=== PATIENT | female | born 1990 | race Caucasian/White ===

== ENCOUNTER 2025-05-19 23:24 | Emergency (ER) | payer OTHER, SELFPAY ==
[2025-05-19 23:28] VITALS: BP 130/63; PULSE 76; RESP 18; TEMP 36.6; O2SAT 97; BMI 33.3
--- NOTE | 2025-05-19 23:37 | ED.GENADULT ---
HPI - General Adult General Chief complaint: Headache Stated complaint: Gen Med Time Seen by Provider: 05/19/25 23:37 History of Present Illness ED Provider: Saleem WILSON narrative: The patient is a 34-year-old woman who says that she has a history of fibromyalgia and migraine headaches. She used to live in [facility]. She relocated to this part of [place] a 2 months ago. She has not yet established any local providers. She says that she had regular providers [place] [facility] including a pain specialist. She says that she has not made the [address] to see her doctors since moving to this area. She says that she has not been prescribed her regular medications because her doctors do not want to prescribe for her unless they have seen her. She says that she has been trying to ?get by and some leftover gabapentin. ? she comes to the emergency room today saying that she has had a migraine headache for the last 2 days and has had worsening fibromyalgia pain for several additional days. No fever, sweats, chills. Related Data Allergies Allergy/AdvReac Type Severity Reaction Status Date / Time metoclopramide (From Reglan) Allergy Irritable Verified 05/19/25 23:31 prochlorperazine (From Allergy Irritable Verified 05/19/25 23:31 Compazine) Review of Systems Review of Systems: Yes all other systems are reviewed and are negative [facility] Social History Social History Advance Directives: No Advance Directives Information Provided: Yes Physical Exam ED Vital Signs: Vital Signs - 24 hr 05/19/25 23:28 05/20/25 01:05 Temperature 97.9 F 97.9 F Pulse Rate 76 76 Respiratory Rate 18 18 Blood Pressure 130/63 130/63 Pulse Oximetry 97 97 Oxygen Delivery Method Room Air Room Air BMI result Body Mass Index 33.3 Const Other: The patient is awake and alert. She said that she was in a lot of discomfort. She did not appear obviously ill or toxic. Her mental status was completely clear. Orientation/consciousness: patient oriented x3 HENMT Other: The face is symmetrical. ?Mucous membranes moist. Eyes Other: Pupils are round equal, conjunctivae are clear, extraocular movements intact Neck Other: No cervical adenopathy, she was moving her neck easily. Neck: Yes no meningeal signs Resp Effort & Inspection: normal respiratory effort Auscultation: clear to auscultation bilaterally Cardio Rate: regular rate Rhythm: regular rhythm Heart sounds: S1 normal heart sound present and S2 normal heart sound present Skin Other: The skin is dry and unremarkable General skin exam: no rashes or lesions noted Neuro General: patient oriented x3, tone normal, moves all extremities, no meningeal signs, no focal motor deficits and CN's II-XI intact bilaterally Extrem Other: No peripheral edema Medications Administered Discontinued Medications Generic Name Dose Route Start Last Admin Trade Name Chuckie PRN Reason Stop Dose Admin Droperidol 2.5 mg 05/19/25 23:48 05/20/25 00:12 Droperidol 5 Mg/2 Ml Vial IVPUSH 05/19/25 23:49 2.5 mg ONCE ONE Administration Sodium Chloride 1,000 mls @ 999 mls/hr 05/19/25 23:45 05/20/25 00:12 Ns IV 05/20/25 00:45 999 mls/hr .Q1H1M YANI Administration Ketorolac Tromethamine 15 mg 05/19/25 23:48 05/20/25 00:12 Ketorolac Tromethamine 15 Mg/Ml Vial IVPUSH 05/19/25 23:49 15 mg ONCE ONE Administration Medical Decision Making Medical Decision Making [facility] Narrative: The patient is a 34-year-old woman who states that she has a history of migraine headaches and that she has a history of fibromyalgia which has required a lot of pain management. She has recently relocated to this area from the [place] part of [facility] where she had regular providers. A review of the [facility] website reveals that she has a received clonazepam fairly regularly recently. She seems to get 20 day supplies of clonazepam, 0.5 mg tablets, 20 tablets prescribed for 20 days' duration. She has previously received prescriptions for pregabalin. Her last pregabalin prescription was filled on January 27. The patient presents today with normal vital signs. Clinical appearance does not seem toxic. I believe she may have a migraine headache and she may have some degree of chronic pains but I do not feel she has any acute process. She will be treated symptomatically with ketorolac and droperidol. The patient seemed to feel somewhat better after treatment with ketorolac and droperidol. She said that mostly her headache was better but that she was still having a lot of body discomfort that she attributes to her fibromyalgia. I explained to the patient that her fibromyalgia pain would be something that she would have to try to manage as an outpatient. My recommendation is that she get back in touch with the all of her previous doctors in the [place] [facility] as it may take her some time to get local doctors involved in her care sufficient to manage her symptoms. She was given the contact information for multiple local primary care practices. She was also given the contact information for the [place] [facility]. Discharge Plan Discharge Clinical Impression: Migraine headache, Fibromyalgia Patient Disposition: Home, Self-Care Additional Instructions: Your discharge instructions have contact information for the [place] pain management office and also for several primary care offices in [place] and other local counts include 234 beds at the [facility] including [place]. You have also been given the contact information for the [facility] pain management office. In the short run I think you will need to rely on your doctors in the [place] [facility] for symptom management. It will probably take you some time to get set up with a local providers. Referrals: [facility] [Provider Group, Family Practice] [facility] [Provider Group] [facility] [Provider Group] [facility] [Provider Group] [facility] Primary Care, [place] [Provider Group, Internal Medicine] [facility] Primary Care, [place] [Provider Group, Internal Medicine] [facility] Primary Care, [facility] [Provider Group, Primary Care] [facility] Primary Care, [facility] [Provider Group, Primary Care] [facility] Pain Management [Provider Group, Pain Management] Interventions: ED Discharge Assessment Last Done: 05/20/25 01:05 Discharge Date/Time: 05/20/25 01:08 Print Language: Lithuanian
--- NOTE | 2025-05-20 00:16 | PC.NURSE ---
Assumed care of pt , presents to the ED for headache and body pains, hx of fibromyalgia, pt stated that she recently moved and has not been able to establish a new PCP, pt normally takes Pregabalin, but has been taking gabapentin which is not working for her. aaox4, S/O at bedside
[2025-05-20 01:05] VITALS: BP 130/63; PULSE 76; RESP 18; TEMP 36.6; O2SAT 97
== END 2025-05-20 01:08 | disposition home or self-care (01) ==
PROVIDERS: Emergency Provider Emergency Medicine
DX: G43.909 Migraine, unspecified, not intractable, without status migrainosus (principal); M79.7 Fibromyalgia
CPT/HCPCS: 96374; 96375; 99284; J1790; J1885

== ENCOUNTER 2025-06-04 15:14 | Outpatient (AMB) | payer OTHER, SELFPAY ==
--- NOTE | 2025-06-04 15:18 | A.OFFVIS_ITS ---
Vital Signs 06/04/25 15:20 Height 5 ft 4 in Weight 200 lb BMI 34.3 BP 122/72 Blood Pressure Location Lt brachial Position Sitting Respiration 16 Pulse 86 Pulse Source Pulse Oximeter Pulse Oximetry (%) 98 Oxygen Delivery Method Room Air Intake Visit Reasons: Fibromyalgia Applique Cutter Required: No Accompanied by: Fiance Allergies metoclopramide (From Reglan) Allergy (Verified 06/04/25 15:21) Irritable prochlorperazine (From Compazine) Allergy (Verified 06/04/25 15:21) Irritable Medication List - Last Reconciled 06/04/25 by Laquita Vuong LPN cholecalciferol (vitamin D3) 25 mcg PO DAILY clonazepam (Klonopin) 0.5 mg PO BEDTIME fluoxetine 60 mg PO DAILY lamotrigine 150 mg PO DAILY pregabalin 300 mg PO BID tizanidine 4 mg PO TID PRN trazodone 100 mg PO BEDTIME PRN HPI Comments Details: The patient is a 34-year-old female presenting with fibromyalgia management. The patient has a history of fibromyalgia, characterized by generalized pain affecting her legs, upper back, and arms. She was diagnosed after an evaluation involving the 18 tender points assessment, although the exact timing of this assessment is unclear. 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 The patient relocated in February and has been unable to continue her previous pain management regimen due to logistical issues with her former provider. She ran out of her medications in early March, leading to a significant increase in pain and disruption of her daily activities, including sleep disturbances and increased pain with exercise. She reports that while on medication, exercise did not exacerbate her pain, but currently, any physical activity worsens her symptoms. The patient has been using sgot-rzq-rdekxvs medications like Tylenol and ibuprofen with minimal relief, and she finds heat application somewhat beneficial. She experiences increased pain with showers due to a pins-and-ne edles sensation when water droplets hit her skin. She is currently taking fluoxetine and lamotrigine for other conditions, and there is a consideration for switching to duloxetine in the future to better manage her fibromyalgia and associated symptoms. - Onset: Pain worsened after discontinuation of medication in early March. - Quality: Described as generalized pain with a kzwj-vjz-auwnoxs sensation during showers. - Location: Legs, upper back, and arms. - Exacerbating factors: Physical activity and showers. - Relieving factors: Heat application and previous medication regimen. - Interference: Affects sleep and daily activities, including work. - Affect: Pain has significantly impacted her ability to sleep and perform daily activities. - Analgesia: Previously managed with pregabalin and tizanidine, providing 65-70% improvement. - Adverse Effects: No reported side effects from pregabalin or tizanidine. 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 - Aberrant Drug Related Behaviors: None reported. [facility] Medical History (Updated 06/04/25 @ 07:52 by Laquita Vuong LPN) Fibromyalgia Migraine Migraine headache Review of Systems Narrative - Musculoskeletal: Reports generalized pain in legs, upper back, and arms. - Neurological: Reports ulbv-wnk-bwrkdlv sensation during showers. - Sleep: Reports difficulty sleeping due to pain. Physical Exam Exam Exam: General: awake, alert, oriented. Answers questions appropriately. Fully engaged in examination. Skin: warm, dry, intact HEENT: Normocephalic. Hearing intact. Cardiac: External chest normal in appearance. Respiratory: No cough, audible wheezing or stridor. Abdomen: without gross distension. MS: No obvious swelling or deformities. Neurological: Oriented to person, place, time and situation. Thought process intact. No gait abnormalities appreciated. Psychiatric: Appropriate mood and affect. Good judgment and insight. Vital Signs: Last Vital Signs Pulse 86 06/04/25 15:20 Resp 16 06/04/25 15:20 BP 122/72 06/04/25 15:20 Pulse Ox 98 06/04/25 15:20 Oxygen Delivery Method Room Air 06/04/25 15:20 BMI result Body Mass Index 34.3 Assessment & Plan Assessment & Plan (1) Fibromyalgia: Code(s): M79.7 - Fibromyalgia Category: Medical Plan The patient will resume pregabalin, starting at 300 mg once daily at bedtime, with a gradual increase to 300 mg twice daily as tolerated. Tizanidine will be prescribed at 4 mg three times a day, with instructions to start with half a tablet and increase as needed, avoiding concurrent use with pregabalin. The patient is advised to monitor for any side effects and to contact the clinic if any issues arise. Follow-up is scheduled in three months to assess the effectiveness of the treatment and make any necessary adjustments. Consideration for switching from fluoxetine to duloxetine will be evaluated based on the patient's response to the current regimen and any changes in her condition. Patient was informed and verbally consented to the use of an ambient scribe for clinic note documentation during this visit. Medications: New pregabalin Take one capsule daily at bedtime, may increase to one capsule twice daily. May cause drowsiness, no driving while taking this medication 300 mg PO BID 60 caps 3RF tizanidine 4 mg PO Q8H PRN 90 tabs 3RF muscle spasticity Patient Instructions: - Start pregabalin at 300 mg once daily at bedtime, increase to twice daily as tolerated. - Take tizanidine 4 mg three times a day, starting with half a tablet and incre asing as needed. - Avoid taking pregabalin and tizanidine at the same time. - Monitor for side effects and contact the clinic if any issues arise. - Schedule a follow-up appointment in three months. Coding Level of Care Code New Pt Level 4 (41665) Complex EM visit Add On G2211 Diagnoses Fibromyalgia M79.7
[2025-06-04 15:20] VITALS: BP 122/72; PULSE 86; RESP 16; O2SAT 98; BMI 34.3
== END 2025-06-04 16:12 | disposition home or self-care (01) ==
LOC: HO.PMC 15:16
PROVIDERS: Visit Provider Registered Nurse Emergency
DX: M79.7 Fibromyalgia (principal)
CPT/HCPCS: 99204

== ENCOUNTER → 2025-06-04 15:14 | Outpatient (BNVA) | payer OTHER, SELFPAY | PROVIDERS: Visit Provider Registered Nurse Emergency | DX: M79.7 Fibromyalgia (principal) | CPT/HCPCS: 99202 ==